=== PATIENT | female | born 1995 | race Caucasian/White ===

== ENCOUNTER 2024-07-02 18:49 | Emergency (ER) | payer OTHER ==
[~2024-07-02] VITALS: Ht 165.1 cm; Wt 77.3 kg
[2024-07-02 19:01] VITALS: TEMP 98.2
[2024-07-02 20:16] LABS: STREP A NEGATIVE
[2024-07-02 20:50] VITALS: BP 113/74; PULSE 70
== END 2024-07-02 20:50 | disposition home or self-care (01) ==
LOC: COL.ER 18:49
PROVIDERS: Nurse Practitioner Primary Care
DX: J06.9 Acute upper respiratory infection, unspecified (principal)